=== PATIENT | female | born 1925 | race Caucasian/White ===

== ENCOUNTER 2016-05-28 08:58 | Emergency (ER) | payer MEDICARE ==
[2016-05-28] MEDS ORDERED: DIPHTH,PERTUSS(ACELL),TET VAC 0.5 ML VIAL IM ONE ×2 (09:08→09:40)
[2016-05-28] MEDS ORDERED: ACETAMINOPHEN 500 MG TABLET PO ONE (09:17)
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
[2016-05-28 11:18] VITALS: BP 138/64
== END 2016-05-28 11:55 | disposition home or self-care (01) ==
LOC: ER 08:58
DX: S01.81XA Laceration without foreign body of other part of head, initial encounter (principal); W19.XXXA Unspecified fall, initial encounter; Y92.009 Unspecified place in unspecified non-institutional (private) residence as the place of occurrence of the external cause; Z23 Encounter for immunization

== ENCOUNTER 2016-07-07 06:27 | Emergency (ER) | payer MEDICARE ==
--- NOTE | 2016-07-07 07:22 | ERNOTE ---
Upper Extremity HPI - Narrative Date of Service: 07/07/16 - General Time Seen by Provider: 07/07/16 06:46 Source: patient Exam Limitations: no limitations - Immun/Allergies/Home Medications Immunizations: IMMUNIZATION HX Immunizations Up to Date Yes Hx Pneumococcal Vaccination More Information Required Allergies/Adverse Reactions: Allergies Allergy/AdvReac Type Severity Reaction Status Date / Time No Known Allergies Allergy Verified 07/07/16 06:45 Home Medications: HOME MEDICATIONS Cetirizine HCl [Zyrtec] 10 mg PO DAILY 04/26/12 [Last Taken 04/26/12] Guar Gum [Benefiber] 1 each PO 2XW 04/26/12 [Last Taken 04/26/12] Lisinopril 20 mg PO DAILY 04/26/12 [Last Taken 04/26/12] Nebivolol HCl [Bystolic] 2.5 mg PO HS 04/26/12 [Last Taken 04/26/12] Oxybutynin Chloride 10 mg PO Q2D 04/26/12 [Last Taken 04/26/12] Acetaminophen [Tylenol] 650 mg PO QID PRN #0 tablet 04/11/13 [Last Taken Unknown ] Ferrous Sulfate 325 mg PO TIDWM #90 tablet 04/11/13 [Last Taken Unknown] Lansoprazole [Prevacid] 30 mg PO BID #60 capsule.sa 04/11/13 [Last Taken Unknown ] Levothyroxine Sodium [Synthroid] 75 mcg PO DAILY@0700 #30 tablet 04/11/13 [Last Taken Unknown] Multivit with Iron-Minerals [Central-Melody For Seniors] 1 tab PO DAILY #30 tablet 04/11/13 [Last Taken Unknown] Zinc Oxide/Petrolatum,White [Soothe & Cool Skin Paste] 1 film TP PRN PRN #71 oint...g. 09/21/14 [Last Taken Unknown] Docusate Sodium [Colace] 100 mg PO DAILY #30 cap 08/14/15 [Last Taken Unknown] Naproxen [Naprosyn] 500 mg PO BID PRN #60 tab 02/03/16 [Last Taken Unknown] Ibuprofen [Caldolor] 400 mg IV TID PRN #15 vial 07/07/16 [Last Taken Unknown] - History of Present Illness Narrative: pt tripped this morning and fell. This happened earlier on this am at home. she was brought in by EMS. She has taken nothing for pain Review of Systems - Review of Systems Constitutional: Present: no symptoms reported EYE: Present: no symptoms reported ENT: Present: no symptoms reported Respiratory: Present: no symptoms reported Cardiology: Present: no symptoms reported Gastrointestinal/Abdominal: Present: no symptoms reported Genitourinary: Present: no symptoms reported Musculoskeletal: Present: other - pt complains of pain in right hip and shoulder - Patient's Past Medical History Patient History - Medical: Other Patient History - Cardiac/Respiratory: Hypertension Patient History - Cancer: No Hx of Cancer Patient History - Surgical Procedures: Appendectomy - Social History Living Situations: spouse Psych History: No pertinent hx - Immunizations Immunizations Up to Date: Yes Hx Pneumococcal Vaccination: More Information Required to Determine Physical Exam - Physical Exam General Appearance: Present: wd/wn, alert, no apparent distress Ears, Nose, Throat: Present: normal ENT inspection Neck: Present: normal inspection Respiratory: Present: no respiratory distress, normal breath sounds, no accessory muscle use, chest nontender, lungs clear Cardiovascular/Chest: Present: regular rate, rhythm, no murmur, normal peripheral pulses Extremity Exam: Present: normal inspection, other - pt has pain in right hip with manipulation. she has no deformity. She also has pain in right shoulder with movement but no deformity noted. ED Progress - Vital Signs Patient's Vital Signs:: I have reviewed the patient's vital signs. Vital Signs: Vital Signs 07/07/ 06:30 Temperature 36.6 C Pulse Rate 64 Respiratory 14 Rate Blood Pressure 138/64 O2 Sat by Pulse 100 Oximetry - X-Ray X-Ray #1 X-Ray: hip - Progress/Reassessment Chief Complaint: Upper Extremity Injury/Problem Plan - Plan Plan: no obvious fx noted on Xray. Departure Clinical Impression: Contusion, hip Qualifiers: Encounter type: initial encounter Laterality: right Qualified Code(s): S70.01XA - Contusion of right hip, initial encounter - Departure Disposition: Home self-care Condition: Fair Instructions: Fall Prevention in the Home, [id number] Prescriptions: Ibuprofen [Caldolor] 400 mg IV TID PRN #15 vial PRN Reason: Pain
[2016-07-07] MEDS ORDERED: IBUPROFEN 400 MG TABLET PO ONE (07:23)
[2016-07-07] MEDS ORDERED: IBUPROFEN 400 MG TABLET ONE (07:26)
[2016-07-07 07:55] VITALS: BP 122/53
== END 2016-07-07 08:34 | disposition home or self-care (01) ==
LOC: ER 06:27
DX: S70.01XA Contusion of right hip, initial encounter (principal); W01.0XXA Fall on same level from slipping, tripping and stumbling without subsequent striking against object, initial encounter; Y92.009 Unspecified place in unspecified non-institutional (private) residence as the place of occurrence of the external cause; I10 Essential (primary) hypertension